=== PATIENT | female | born 1945 | race Caucasian/White ===

== ENCOUNTER 2024-06-27 13:40 | Inpatient (IN) ==
[2024-06-27] MEDS: IPRATROPIUM/ALBUTEROL 3 ML AMPUL.NEB NEB ONE ×3 (14:37→20:55)
[2024-06-27 15:24] LABS: Basophils # (Auto) 0.02 K/mcL (0.00-0.30); Basophils % (Auto) 0.3 % (0.0-2.0); Eosinophils # (Auto) 0.47 K/mcL (0.00-0.70); Eosinophils % (Auto) 6.5 % (0.0-7.0); Hematocrit 31.8 % (34.1-44.9); Hemoglobin 9.3 g/dL (11.2-15.7); Lymphocytes # (Auto) 0.91 K/mcL (1.50-4.80); Lymphocytes % (Auto) 12.6 % (15.5-49.0); Mean Cell Volume 94.4 fL (80.0-100.0); Mean Corpuscular HGB Conc 29.2 g/dL (31.0-36.0); Mean Platelet Volume 9.6 fL (8.8-12.5); Monocytes # (Auto) 0.73 K/mcL (0.10-0.90); Monocytes % (Auto) 10.1 % (1.0-12.0); Neutrophils % (Auto) 70.4 % (38.0-78.0); Platelet Count 317 K/mcL (140-440); RBC 3.37 M/mcL (3.59-5.38); Red Cell Distribution Width 14.3 % (11.5-14.5); WBC 7.2 K/mcL (4.5-11.0)
[2024-06-27 15:46] LABS: Blood Urea Nitrogen 30 mg/dL (8-23); Calcium 9.9 mg/dL (8.6-10.4); Carbon Dioxide 32 mmol/L (22-30); Chloride 99 mmol/L (96-108); Glomerular Filtration Rate 28; Glucose 123 mg/dL (70-105); Potassium 4.3 mmol/L (3.3-5.1); Sodium 141 mmol/L (133-145)
[2024-06-27] MEDS: FUROSEMIDE 40 MG/4 ML VIAL IV ONE (16:06)
[2024-06-27] MEDS: methylPREDNISolone SOD SUCC 125 MG/2 ML VIAL IV ONE (17:04)
[2024-06-27] MEDS: LEVOFLOXACIN 750 MG/150 ML BAG IV ONE (17:04)
[2024-06-27] MEDS ORDERED: POTASSIUM CHLORIDE 40 MEQ in DEXTROSE 5% IN WATER 500 ML IV PRN (18:53)
[2024-06-27] MEDS ORDERED: MAGNESIUM SULFATE 2 GM/50 ML BAG IV PRN (18:53)
[2024-06-27] MEDS ORDERED: POTASSIUM CHLORIDE 20 MEQ TABLET PO PRN ×2 (18:53)
[2024-06-27] MEDS ORDERED: ONDANSETRON 4 MG/2 ML VIAL IV PRN (18:53)
[2024-06-27] MEDS ORDERED: POLYETHYLENE GLYCOL 3350 17 GM PACKET PO PRN (18:53)
[2024-06-27] MEDS ORDERED: SENNOSIDES 1 TABLET PO PRN (18:53)
[2024-06-27] MEDS ORDERED: METOCLOPRAMIDE 10 MG/2 ML VIAL IV PRN (18:53)
[2024-06-27] MEDS: IPRATROPIUM/ALBUTEROL 3 ML AMPUL.NEB NEB PRN (19:39)
[2024-06-27] MEDS ORDERED: NITROGLYCERIN 0.4 MG TAB.SUBL SL PRN (21:01)
[2024-06-27] MEDS: ATORVASTATIN 40 MG TABLET PO SCH (21:21)
[2024-06-27] MEDS: DOCUSATE SODIUM 100 MG CAPSULE PO SCH (21:21)
[2024-06-27] MEDS: FUROSEMIDE 40 MG/4 ML VIAL IV SCH (21:22)
[2024-06-27] MEDS: BUDESONIDE 0.5 MG/2 ML AMPUL.NEB NAS SCH (22:18)
[2024-06-27] MEDS: DABIGATRAN ETEXILATE MESYLATE 75 MG CAPSULE PO SCH (22:39)
[2024-06-28 06:30] LABS: Blood Urea Nitrogen 38 mg/dL (8-23); Carbon Dioxide 32 mmol/L (22-30); Chloride 96 mmol/L (96-108); Glucose 310 mg/dL (70-105); Potassium 4.8 mmol/L (3.3-5.1); Sodium 140 mmol/L (133-145); Uric Acid 8.3 mg/dL (2.5-8.0)
[2024-06-28 06:31] LABS: ALT/SGPT 13 U/L (<40); AST/SGOT 17 U/L (<32); Albumin 3.8 gm/dL (3.2-5.2); Albumin/Globulin Ratio 1.2 (1.0-2.3); Alkaline Phosphatase 46 U/L (39-117); Bilirubin,Direct 0.3 mg/dL (<0.3); Bilirubin,Total 0.5 mg/dL (0.1-1.0); Calcium 9.6 mg/dL (8.6-10.4); Globulin 3.1 gm/dL (2.2-3.7); Glomerular Filtration Rate 23; Lactate Dehydrogenase 206 U/L (135-225); Phosphorous 4.4 mg/dL (2.5-4.5); Thyroid Stimulating Hormone 0.72 uIU/mL (0.27-5.01); Triglycerides 37 mg/dL (<150)
[2024-06-28] MEDS: PANTOPRAZOLE 40 MG TABLET PO SCH (07:25)
[2024-06-28] MEDS ORDERED: DEXTROSE 31 GM ORAL.SUSP PO PRN ×2 (07:31→14:47)
[2024-06-28] MEDS ORDERED: DEXTROSE 50% 50 ML VIAL IV PRN ×2 (07:31→14:47)
[2024-06-28] MEDS: METOPROLOL SUCCINATE 25 MG TAB.XL.24H PO SCH (08:44)
[2024-06-28] MEDS: SPIRONOLACTONE 25 MG TABLET PO SCH (08:45)
[2024-06-28] MEDS ORDERED: METOLAZONE 2.5 MG TABLET PO ONE (09:00)
[2024-06-28] MEDS ORDERED: BUMETANIDE 1 MG/4 ML VIAL IV ONE (09:00)
[2024-06-28 09:13] LABS: Hemoglobin A1C 6.2 % Hgb (4.0-6.0)
[2024-06-28] MEDS: METOLAZONE 2.5 MG TABLET PO ONE (10:31)
[2024-06-28] MEDS: ENOXAPARIN 100 MG/ML SYRINGE SQ SCH (11:15)
[2024-06-28] MEDS: BUMETANIDE 1 MG/4 ML VIAL IV ONE (11:15)
[2024-06-28] MEDS: INSULIN LISPRO 1 UNIT/0.01 ML UNIT SQ SCH ×2 (11:43→17:12)
[2024-06-28 12:51] LABS: Appearance,Urine Clear (Clear); Bilirubin,Urine Negative (Negative); Color,Urine Yellow; Glucose,Urine (UA) Negative (Negative); Ketones,Urine Negative (Negative); Leukocyte Esterase,Urine Negative /uL (Negative); Nitrate,Urine Negative (Negative); PH,Urine 5.5 (5.0-9.0); Protein,Urine Negative (Negative); Specific Gravity,Urine 1.015 (1.000-1.035); Urine Blood Negative ery/mcL (Negative); Urobilinogen,Urine Normal
[2024-06-28] MEDS ORDERED: guaiFENesin/DEXTROMETHORPHAN 5ML UD CUP PO PRN (14:39)
[2024-06-28] MEDS: FUROSEMIDE 40 MG/4 ML VIAL IV SCH (15:20)
[2024-06-28] MEDS: AZITHROMYCIN 250 MG TABLET PO SCH (15:21)
[2024-06-28] MEDS: predniSONE 20 MG TABLET PO SCH (15:21)
[2024-06-28] MEDS: CALCIUM CARBONATE 500 MG TAB.CHEW PO SCH (17:20)
[2024-06-29 06:03] LABS: Basophils # (Auto) 0 K/mcL (0.00-0.30); Basophils % (Auto) 0 % (0.0-2.0); Eosinophils # (Auto) 0 K/mcL (0.00-0.70); Eosinophils % (Auto) 0 % (0.0-7.0); Hematocrit 30.8 % (34.1-44.9); Hemoglobin 9.2 g/dL (11.2-15.7); Lymphocytes # (Auto) 0.59 K/mcL (1.50-4.80); Lymphocytes % (Auto) 4.9 % (15.5-49.0); Mean Cell Volume 92.8 fL (80.0-100.0); Mean Corpuscular HGB Conc 29.9 g/dL (31.0-36.0); Mean Platelet Volume 9.5 fL (8.8-12.5); Monocytes % (Auto) 4.2 % (1.0-12.0); Neutrophils % (Auto) 90.6 % (38.0-78.0); Platelet Count 374 K/mcL (140-440); RBC 3.32 M/mcL (3.59-5.38); Red Cell Distribution Width 14.6 % (11.5-14.5); WBC 11.9 K/mcL (4.5-11.0)
[2024-06-29 06:37] LABS: ALT/SGPT 13 U/L (<40); AST/SGOT 17 U/L (<32); Albumin 3.7 gm/dL (3.2-5.2); Albumin/Globulin Ratio 1.3 (1.0-2.3); Alkaline Phosphatase 44 U/L (39-117); Bilirubin,Direct 0.2 mg/dL (<0.3); Bilirubin,Total 0.3 mg/dL (0.1-1.0); Blood Urea Nitrogen 58 mg/dL (8-23); Calcium 9.6 mg/dL (8.6-10.4); Carbon Dioxide 33 mmol/L (22-30); Chloride 95 mmol/L (96-108); Globulin 2.8 gm/dL (2.2-3.7); Glomerular Filtration Rate 23; Glucose 174 mg/dL (70-105); Lactate Dehydrogenase 205 U/L (135-225); Phosphorous 4.8 mg/dL (2.5-4.5); Potassium 4.6 mmol/L (3.3-5.1); Sodium 140 mmol/L (133-145); Triglycerides 55 mg/dL (<150); Uric Acid 9.5 mg/dL (2.5-8.0)
[2024-06-29] MEDS: ASPIRIN 81 MG TAB.CHEW PO SCH (08:30)
[2024-06-29] MEDS: LISINOPRIL 2.5 MG TABLET PO SCH (08:30)
[2024-06-29] MEDS ORDERED: DABIGATRAN ETEXILATE MESYLATE 75 MG CAPSULE PO SCH ×2 (09:00→21:00)
[2024-06-29] MEDS: ENOXAPARIN 100 MG/ML SYRINGE SQ SCH (10:56)
[2024-06-29] MEDS: FUROSEMIDE 40 MG TABLET PO SCH (17:01)
[2024-06-29] MEDS: DABIGATRAN ETEXILATE MESYLATE 75 MG CAPSULE PO SCH (20:27)
[2024-06-30 05:56] LABS: Basophils # (Auto) 0 K/mcL (0.00-0.30); Basophils % (Auto) 0 % (0.0-2.0); Eosinophils # (Auto) 0.03 K/mcL (0.00-0.70); Eosinophils % (Auto) 0.3 % (0.0-7.0); Hematocrit 29.7 % (34.1-44.9); Hemoglobin 8.8 g/dL (11.2-15.7); Lymphocytes # (Auto) 1.26 K/mcL (1.50-4.80); Lymphocytes % (Auto) 12.9 % (15.5-49.0); Mean Cell Volume 93.1 fL (80.0-100.0); Mean Corpuscular HGB Conc 29.6 g/dL (31.0-36.0); Mean Platelet Volume 9.5 fL (8.8-12.5); Monocytes # (Auto) 0.93 K/mcL (0.10-0.90); Monocytes % (Auto) 9.5 % (1.0-12.0); Neutrophils % (Auto) 77.1 % (38.0-78.0); Platelet Count 356 K/mcL (140-440); RBC 3.19 M/mcL (3.59-5.38); Red Cell Distribution Width 14.8 % (11.5-14.5); WBC 9.7 K/mcL (4.5-11.0)
[2024-06-30 06:20] LABS: ALT/SGPT 13 U/L (<40); AST/SGOT 17 U/L (<32); Albumin 3.5 gm/dL (3.2-5.2); Albumin/Globulin Ratio 1.3 (1.0-2.3); Alkaline Phosphatase 38 U/L (39-117); Bilirubin,Total 0.3 mg/dL (0.1-1.0); Blood Urea Nitrogen 66 mg/dL (8-23); Calcium 9.6 mg/dL (8.6-10.4); Carbon Dioxide 35 mmol/L (22-30); Chloride 95 mmol/L (96-108); Globulin 2.7 gm/dL (2.2-3.7); Glomerular Filtration Rate 22; Glucose 118 mg/dL (70-105); Potassium 4.2 mmol/L (3.3-5.1); Sodium 140 mmol/L (133-145)
[2024-06-30] MEDS ORDERED: DABIGATRAN ETEXILATE MESYLATE 75 MG CAPSULE PO SCH (09:00)
== END 2024-06-30 11:57 | DRG 291 ==
LOC: ED 13:40 → ICU 18:37 → MEDSUR 06-28 15:50
PROVIDERS: ADMIT Internal Medicine; ATTEND Internal Medicine